=== PATIENT | male | born 1965 | race African-American/Black ===

== ENCOUNTER 2017-03-22 02:28 | Emergency (ER) | payer OTHER ==
[~2017-03-22] VITALS: Ht 180.3 cm; Wt 89.7 kg
[~2017-03-22 02:28] MED LIST: ASPI-1159 PO; BENA20TA3 PO; NIFE60TA64 PO; PANT40TA4 PO
[2017-03-22] MEDS ORDERED: MAGNESIUM/ALUMINUM HYDROXIDE/SIMETHICONE 30ML UDC PO ONE (04:15)
[2017-03-22] MEDS ORDERED: VISCOUS LIDOCAINE 2% 15 ML UDC PO ONE (04:15)
[2017-03-22] MEDS ORDERED: FAMOTIDINE 20MG TABLET PO ONE (04:15)
[2017-03-22] MEDS ORDERED: ONDANSETRON 4MG ODT PO ONE (04:15)
[2017-03-22 05:18] VITALS: BP 129/74
== END 2017-03-22 05:27 | disposition home or self-care (01) ==
LOC: ER 02:28
DX: K29.70 Gastritis, unspecified, without bleeding (principal); K21.9 Gastro-esophageal reflux disease without esophagitis; I10 Essential (primary) hypertension
CPT/HCPCS: 99284; Q0162; Z7610

== ENCOUNTER 2017-04-10 11:49 | Emergency (ER) | payer OTHER ==
[~2017-04-10] VITALS: Ht 177.8 cm; Wt 75.0 kg
[2017-04-10] MEDS ORDERED: SODIUM CHLORIDE 0.9% 1,000 ML IV ONE (12:23)
[2017-04-10] MEDS ORDERED: MAGNESIUM/ALUMINUM HYDROXIDE/SIMETHICONE 30ML UDC PO ONE (12:30)
[2017-04-10] MEDS ORDERED: ONDANSETRON 4MG ODT PO ONE ×2 (12:45→13:45)
[2017-04-10] MEDS ORDERED: FAMOTIDINE 20MG TABLET PO ONE (12:45)
[2017-04-10 13:06] LABS: BASOPHILS % 0.9 % (0.0-2.0); EOSINOPHILS % 0.7 % (0.0-5.0); HEMATOCRIT. 47.8 % (42.0-52.0); HEMOGLOBIN. 16.2 g/dL (14.0-18.0); LYMPHOCYTES % 19.2 % (20.0-50.0); MEAN CORPUSCULAR VOLUME 91.8 fL (80.0-94.0); MEAN PLATELET VOLUME 7.9 fl (7.4-10.4); NEUTROPHILS % 72.2 % (40.0-76.0); PLATELET 240 x1000/uL (130-400); RED BLOOD CELL COUNT 5.21 mill/uL (4.7-6.1); RED CELL DISTRIBUTION WIDTH 14.7 % (11.6-14.6)
[2017-04-10 13:11] LABS: CHLORIDE 106 mEq/L (98-107)
[2017-04-10 13:13] LABS: INR 1.1; PROTHROMBIN TIME 11.7 sec
[2017-04-10 13:16] LABS: CARBON DIOXIDE 22 mEq/L (21-32)
[2017-04-10] MEDS ORDERED: METOCLOPRAMIDE HCL 10MG/2ML VIAL IV ONE (13:45)
[2017-04-10] MEDS ORDERED: TRAMADOL 50MG TABLET PO ONE (13:45)
[2017-04-10 14:20] VITALS: BP 116/77
== END 2017-04-10 15:21 | disposition home or self-care (01) ==
LOC: ER 12:09
DX: K21.9 Gastro-esophageal reflux disease without esophagitis (principal); I10 Essential (primary) hypertension
CPT/HCPCS: 36415; 80053; 83690; 85025; 85610; 96361; 96374; 99284; J2765; J7030; Q0162; Z7610; 81003

== ENCOUNTER 2017-04-27 04:20 | Emergency (ER) | payer OTHER ==
[~2017-04-27] VITALS: Ht 180.3 cm; Wt 83.0 kg
[2017-04-27] MEDS ORDERED: SUCR1ORA PO (04:41)
[2017-04-27] MEDS ORDERED: MAGNESIUM/ALUMINUM HYDROXIDE/SIMETHICONE 30ML UDC PO STA ×2 (05:16→05:21)
[2017-04-27] MEDS ORDERED: VISCOUS LIDOCAINE 2% 15 ML UDC PO STA ×2 (05:16→05:21)
[2017-04-27] MEDS ORDERED: ONDANSETRON 4MG ODT PO STA (05:16)
[2017-04-27] MEDS ORDERED: FAMOTIDINE 20MG/2ML VIAL IV STA (05:21)
[2017-04-27] MEDS ORDERED: ONDANSETRON HCL 4MG/2ML VIAL IV STA (05:21)
[2017-04-27] MEDS ORDERED: KETOROLAC 30MG/ML VIAL IV STA (05:21)
[2017-04-27] MEDS ORDERED: FAMOTIDINE 20MG TABLET PO ONE (05:30)
[2017-04-27 05:37] VITALS: BP 164/110
== END 2017-04-27 06:35 | disposition home or self-care (01) ==
LOC: ER 04:20
DX: K21.9 Gastro-esophageal reflux disease without esophagitis (principal); D49.2 Neoplasm of unspecified behavior of bone, soft tissue, and skin; Z79.82 Long term (current) use of aspirin
CPT/HCPCS: 93005; 96374; 96375; 99284; J1885; J2405; J3490; Z7610

== ENCOUNTER 2017-05-19 05:17 | Emergency (ER) | payer OTHER ==
[~2017-05-19] VITALS: Ht 180.3 cm; Wt 80.0 kg
[~2017-05-19 05:17] MED LIST changes: +SUCR1ORA PO
[2017-05-19] MEDS ORDERED: FAMOTIDINE 20MG/2ML VIAL IV STA (08:22)
[2017-05-19] MEDS ORDERED: DICYCLOMINE 10 MG/5 ML ORAL SYR PO STA (08:22)
[2017-05-19] MEDS ORDERED: ONDANSETRON HCL 4MG/2ML VIAL IV STA (08:22)
[2017-05-19] MEDS ORDERED: VISCOUS LIDOCAINE 2% 15 ML UDC PO STA (08:22)
[2017-05-19] MEDS ORDERED: MAGNESIUM/ALUMINUM HYDROXIDE/SIMETHICONE 30ML UDC PO STA (08:22)
[2017-05-19] MEDS ORDERED: MORPHINE SULFATE 2 MG/ML CPJ (NOT FOR IM USE) IV ONE (09:15)
[2017-05-19 10:40] VITALS: BP 110/82
== END 2017-05-19 10:52 | disposition home or self-care (01) ==
LOC: ER 05:17
DX: K21.9 Gastro-esophageal reflux disease without esophagitis (principal); I10 Essential (primary) hypertension
CPT/HCPCS: 93005; 96374; 96375; 99284; J2270; J2405; J3490; Z7610

== ENCOUNTER 2017-05-21 08:18 | Emergency (ER) | payer OTHER ==
[~2017-05-21] VITALS: Ht 180.3 cm; Wt 85.0 kg
[2017-05-21] MEDS ORDERED: KETOROLAC 60MG/2ML VIAL IM ONE (09:15)
[2017-05-21] MEDS ORDERED: FAMOTIDINE 20MG TABLET PO ONE (09:15)
[2017-05-21 09:17] VITALS: BP 112/97
== END 2017-05-21 10:31 | disposition home or self-care (01) ==
LOC: ER 08:39
DX: J02.9 Acute pharyngitis, unspecified (principal); K21.9 Gastro-esophageal reflux disease without esophagitis; Z98.890 Other specified postprocedural states; I10 Essential (primary) hypertension
CPT/HCPCS: 96372; 99283; J1885; Z7610

== ENCOUNTER 2017-06-14 05:07 | Emergency (ER) | payer OTHER ==
[~2017-06-14] VITALS: Ht 180.3 cm; Wt 84.8 kg
[2017-06-14] MEDS ORDERED: MORPHINE SULFATE 4 MG/ML CPJ (NOT FOR IM USE) IV STA (07:03)
[2017-06-14] MEDS ORDERED: ONDANSETRON HCL 4MG/2ML VIAL IV STA (07:03)
[2017-06-14] MEDS ORDERED: SODIUM CHLORIDE 0.9% 1,000 ML IV ONE (07:03)
[2017-06-14] MEDS ORDERED: FAMOTIDINE 20MG/2ML VIAL IV STA (07:03)
[2017-06-14] MEDS ORDERED: VISCOUS LIDOCAINE 2% 15 ML UDC PO STA (07:05)
[2017-06-14] MEDS ORDERED: MAGNESIUM/ALUMINUM HYDROXIDE/SIMETHICONE 30ML UDC PO STA (07:05)
[2017-06-14] MEDS ORDERED: FOLIC ACID 1 MG, THIAMINE HCL 100 MG, MVI, ADULT NO.1 10 ML in DEXTROSE 5% WATER 1,000 ML IV ONE ×4 (07:15)
[2017-06-14 07:34] LABS: BASOPHILS % 1.2 % (0.0-2.0); EOSINOPHILS % 0.6 % (0.0-5.0); HEMATOCRIT. 47.4 % (42.0-52.0); HEMOGLOBIN. 16.4 g/dL (14.0-18.0); LYMPHOCYTES % 32.7 % (20.0-50.0); MEAN CORPUSCULAR HEMOGLOBIN 30.9 pg (28.0-32.0); MEAN CORPUSCULAR VOLUME 89.3 fL (80.0-94.0); MEAN PLATELET VOLUME 7.5 fl (7.4-10.4); MONOCYTES % 6.9 % (2.0-8.0); NEUTROPHILS % 58.6 % (40.0-76.0); PLATELET 237 x1000/uL (130-400); RED BLOOD CELL COUNT 5.31 mill/uL (4.7-6.1); RED CELL DISTRIBUTION WIDTH 13.8 % (11.6-14.6)
[2017-06-14 07:42] LABS: INR 1.1; PROTHROMBIN TIME 10.9 sec (9.4-11.6)
[2017-06-14 07:49] LABS: CARBON DIOXIDE 20 mEq/L (21-32); CHLORIDE 99 mEq/L (98-107); ETHANOL BLOOD 25 mg/dL
[2017-06-14 10:11] LABS: CLARITY URINE CLEAR (CLEAR); COLOR URINE YELLOW (YELLOW); GLUCOSE URINE NEGATIVE (NEGATIVE); KETONES URINE 2+ (NEGATIVE); LEUKOCYTE ESTERASE URINE NEGATIVE (NEGATIVE); NITRITE URINE NEGATIVE (NEGATIVE); OCCULT BLOOD URINE 2+ (NEGATIVE); PROTEIN URINE 3+ (NEGATIVE); SPECIFIC GRAVITY URINE 1.023 (1.005-1.030); UROBILINOGEN URINE 0.2 E.U./dL (0.2-1.0)
[2017-06-14 10:31] LABS: *AMPHETAMINES SCREEN URINE NEGATIVE (NEGATIVE); *BARBITURATES SCREEN URINE NEGATIVE (NEGATIVE); *BENZODIAZEPINES SCREEN URINE NEGATIVE (NEGATIVE); *COCAINE SCREEN URINE NEGATIVE (NEGATIVE); CANNABINOID URINE SCREEN PRESUMTIVE POSITIVE (NEGATIVE); METHADONE URINE SCREEN NEGATIVE (NEGATIVE); OPIATES URINE SCREEN PRESUMTIVE POSITIVE (NEGATIVE); PHENCYCLIDINE URINE SCREEN NEGATIVE (NEGATIVE)
[2017-06-14 11:53] VITALS: BP 138/98
== END 2017-06-14 13:37 | disposition home or self-care (01) ==
LOC: ER 07:33
DX: R10.13 Epigastric pain (principal); I51.7 Cardiomegaly; I11.9 Hypertensive heart disease without heart failure; K21.9 Gastro-esophageal reflux disease without esophagitis; Z79.82 Long term (current) use of aspirin
CPT/HCPCS: 36415; 71010; 74010; 80053; 80305; 81001; 83690; 85025; 85610; 93005; 96365; 96375; 99285; G0482; J2270; J2405; J3411; J3490; J7030; J7070; Z7610

== ENCOUNTER 2017-06-22 15:40 | Emergency (ER) | payer OTHER ==
[~2017-06-22] VITALS: Ht 180.3 cm; Wt 75.0 kg
[2017-06-22] MEDS ORDERED: MORPHINE SULFATE 4 MG/ML CPJ (NOT FOR IM USE) IV STA (20:36)
[2017-06-22] MEDS ORDERED: MAGNESIUM/ALUMINUM HYDROXIDE/SIMETHICONE 30ML UDC PO STA ×2 (20:36)
[2017-06-22] MEDS ORDERED: ONDANSETRON HCL 4MG/2ML VIAL IV STA ×2 (20:36→23:07)
[2017-06-22] MEDS ORDERED: VISCOUS LIDOCAINE 2% 15 ML UDC PO STA (20:36)
[2017-06-22] MEDS ORDERED: FAMOTIDINE 20MG/2ML VIAL IV STA (20:36)
[2017-06-22] MEDS ORDERED: FOLIC ACID 1 MG, THIAMINE HCL 100 MG, MVI, ADULT NO.1 10 ML in DEXTROSE 5% WATER 1,000 ML IV ONE ×4 (20:45)
[2017-06-22] MEDS ORDERED: SODIUM CHLORIDE 0.9% 1,000 ML IV ONE ×2 (20:48→23:07)
[2017-06-22 20:58] LABS: BASOPHILS % 0.6 % (0.0-2.0); EOSINOPHILS % 0.6 % (0.0-5.0); HEMOGLOBIN. 14.7 g/dL (14.0-18.0); LYMPHOCYTES % 50.5 % (20.0-50.0); MEAN CORPUSCULAR HEMOGLOBIN 30.7 pg (28.0-32.0); MEAN CORPUSCULAR VOLUME 90.1 fL (80.0-94.0); MEAN PLATELET VOLUME 7.7 fl (7.4-10.4); NEUTROPHILS % 37.3 % (40.0-76.0); PLATELET 230 x1000/uL (130-400); RED BLOOD CELL COUNT 4.78 mill/uL (4.7-6.1); RED CELL DISTRIBUTION WIDTH 14.2 % (11.6-14.6)
[2017-06-22 21:07] LABS: INR 1.1; PROTHROMBIN TIME 11.5 sec (9.4-11.6)
[2017-06-22 21:12] LABS: CARBON DIOXIDE 23 mEq/L (21-32); CHLORIDE 107 mEq/L (98-107); ETHANOL BLOOD 12 mg/dL
[2017-06-22] MEDS ORDERED: LORAZEPAM 2MG/ML CPJ IV ONE (23:15)
[2017-06-22] MEDS ORDERED: POTASSIUM CHLORIDE 20MEQ TABLET SR PO ONE (23:15)
[2017-06-22 23:20] LABS: CLARITY URINE CLEAR (CLEAR); COLOR URINE YELLOW (YELLOW); GLUCOSE URINE TRACE (NEGATIVE); KETONES URINE NEGATIVE (NEGATIVE); LEUKOCYTE ESTERASE URINE NEGATIVE (NEGATIVE); NITRITE URINE NEGATIVE (NEGATIVE); OCCULT BLOOD URINE NEGATIVE (NEGATIVE); PH URINE 6.5 (4.5-8.0); PROTEIN URINE NEGATIVE (NEGATIVE); SPECIFIC GRAVITY URINE 1.007 (1.005-1.030); UROBILINOGEN URINE 0.2 E.U./dL (0.2-1.0)
[2017-06-22 23:36] LABS: *AMPHETAMINES SCREEN URINE NEGATIVE (NEGATIVE); *BARBITURATES SCREEN URINE NEGATIVE (NEGATIVE); *BENZODIAZEPINES SCREEN URINE NEGATIVE (NEGATIVE); *COCAINE SCREEN URINE NEGATIVE (NEGATIVE); CANNABINOID URINE SCREEN NEGATIVE (NEGATIVE); METHADONE URINE SCREEN NEGATIVE (NEGATIVE); OPIATES URINE SCREEN PRESUMTIVE POSITIVE (NEGATIVE); PHENCYCLIDINE URINE SCREEN NEGATIVE (NEGATIVE)
[2017-06-23 00:50] VITALS: BP 141/82
== END 2017-06-23 00:50 | disposition home or self-care (01) ==
LOC: ER 15:40
DX: K29.70 Gastritis, unspecified, without bleeding (principal); E86.0 Dehydration; I10 Essential (primary) hypertension; K21.9 Gastro-esophageal reflux disease without esophagitis; Z79.82 Long term (current) use of aspirin
CPT/HCPCS: 36415; 80053; 80305; 81001; 83690; 85025; 85610; 93005; 96365; 96375; 96376; 99285; G0482; J2060; J2270; J2405; J3411; J3490; J7030; J7070; Z7610; 96361

== ENCOUNTER 2017-07-14 09:18 | Emergency (ER) | payer OTHER ==
[~2017-07-14] VITALS: Ht 177.8 cm; Wt 86.0 kg
[2017-07-14] MEDS ORDERED: SODIUM CHLORIDE 0.9% 1,000 ML IV ONE ×2 (09:41→11:00)
[2017-07-14] MEDS ORDERED: ONDANSETRON HCL 4MG/2ML VIAL IV STA (09:41)
[2017-07-14] MEDS ORDERED: THIAMINE HCL 100 MG/1 ML 2ML VIAL IM STA (09:55)
[2017-07-14] MEDS ORDERED: GABAPENTIN 300MG CAPSULE PO STA (09:55)
[2017-07-14] MEDS ORDERED: MAGNESIUM/ALUMINUM HYDROXIDE/SIMETHICONE 30ML UDC PO ONE (10:00)
[2017-07-14] MEDS ORDERED: VISCOUS LIDOCAINE 2% 15 ML UDC PO ONE (10:00)
[2017-07-14] MEDS ORDERED: DIAZEPAM 5 MG/ML 2ML CPJ IV ONE (10:00)
[2017-07-14 10:10] LABS: BASOPHILS % 0.9 % (0.0-2.0); HEMATOCRIT. 43.2 % (42.0-52.0); HEMOGLOBIN. 14.7 g/dL (14.0-18.0); LYMPHOCYTES % 19.3 % (20.0-50.0); MEAN CORPUSCULAR HEMOGLOBIN 30.6 pg (28.0-32.0); MEAN PLATELET VOLUME 7.8 fl (7.4-10.4); MONOCYTES % 8.5 % (2.0-8.0); NEUTROPHILS % 70.3 % (40.0-76.0); PLATELET 228 x1000/uL (130-400); RED BLOOD CELL COUNT 4.81 mill/uL (4.7-6.1); RED CELL DISTRIBUTION WIDTH 14.7 % (11.6-14.6)
[2017-07-14 10:24] LABS: CARBON DIOXIDE 21 mEq/L (21-32); CHLORIDE 94 mEq/L (98-107); ETHANOL BLOOD < 10 mg/dL; TROPONIN I < 0.02 ng/mL (0.00-0.04)
[2017-07-14] MEDS ORDERED: MAGNESIUM 2 G PREMIX 50 ML IV ONE (10:45)
[2017-07-14] MEDS ORDERED: POTASSIUM CHLORIDE INJ 40 MEQ in DEXT 5% WATER 500 ML IV ONE (10:45)
[2017-07-14] MEDS: GABAPENTIN 400MG CAPSULE PO SCH ×2 (14:20→14:47)
[2017-07-14 14:45] VITALS: BP 135/79
== END 2017-07-14 14:49 | disposition home or self-care (01) ==
LOC: ER 10:03
DX: F10.239 Alcohol dependence with withdrawal, unspecified (principal); K29.20 Alcoholic gastritis without bleeding; K21.9 Gastro-esophageal reflux disease without esophagitis; R00.0 Tachycardia, unspecified; E86.0 Dehydration; E87.2 Acidosis; Y90.0 Blood alcohol level of less than 20 mg/100 ml; Z79.82 Long term (current) use of aspirin
CPT/HCPCS: 36415; 80053; 83605; 83690; 84484; 85025; 93005; 96365; 96372; 96375; 99285; G0482; J2405; J3411; J3475; J3480; J7030; Z7610; J7060

== ENCOUNTER 2017-08-13 08:36 | Emergency (ER) | payer OTHER ==
[~2017-08-13] VITALS: Ht 180.3 cm; Wt 89.0 kg
[2017-08-13 08:54] VITALS: BP 130/91
[2017-08-13] MEDS ORDERED: MAGNESIUM/ALUMINUM HYDROXIDE/SIMETHICONE 30ML UDC PO ONE (11:15)
[2017-08-13] MEDS: VISCOUS LIDOCAINE 2% 15 ML UDC MM PRN ×2 (11:21→11:22)
== END 2017-08-13 11:25 | disposition home or self-care (01) ==
LOC: ER 08:54
DX: K29.20 Alcoholic gastritis without bleeding (principal); K21.9 Gastro-esophageal reflux disease without esophagitis; I10 Essential (primary) hypertension; Z79.82 Long term (current) use of aspirin
CPT/HCPCS: 99282

== ENCOUNTER 2017-08-29 18:16 | Emergency (ER) | payer OTHER ==
[~2017-08-29] VITALS: Ht 180.3 cm; Wt 87.0 kg
[2017-08-29 18:21] VITALS: BP 152/100
== END 2017-08-29 19:12 | disposition home or self-care (01) ==
LOC: ER 18:16
DX: R22.0 Localized swelling, mass and lump, head (principal); I10 Essential (primary) hypertension; K21.9 Gastro-esophageal reflux disease without esophagitis; Z79.82 Long term (current) use of aspirin
CPT/HCPCS: 99281

== ENCOUNTER 2017-09-13 05:15 | Emergency (ER) | payer OTHER ==
[~2017-09-13] VITALS: Ht 177.8 cm; Wt 91.0 kg
[2017-09-13] MEDS ORDERED: VISCOUS LIDOCAINE 2% 15 ML UDC MM STA (06:09)
[2017-09-13] MEDS ORDERED: SODIUM CHLORIDE 0.9% 1,000 ML IV ONE ×2 (06:09→07:47)
[2017-09-13] MEDS ORDERED: ONDANSETRON HCL 4MG/2ML VIAL IV STA (06:09)
[2017-09-13] MEDS ORDERED: FAMOTIDINE 20MG/2ML VIAL IV STA (06:09)
[2017-09-13] MEDS ORDERED: MIDAZOLAM HCL 2 MG/2 ML VIAL IV ONE (06:15)
[2017-09-13 07:15] LABS: BASOPHILS % 1.4 % (0.0-2.0); EOSINOPHILS % 2.4 % (0.0-5.0); HEMATOCRIT. 41.4 % (42.0-52.0); HEMOGLOBIN. 14.3 g/dL (14.0-18.0); LYMPHOCYTES % 43.1 % (20.0-50.0); MEAN CORPUSCULAR HEMOGLOBIN 31.8 pg (28.0-32.0); MEAN CORPUSCULAR VOLUME 91.9 fL (80.0-94.0); MEAN PLATELET VOLUME 7.6 fl (7.4-10.4); MONOCYTES % 12.7 % (2.0-8.0); NEUTROPHILS % 40.4 % (40.0-76.0); PLATELET 292 x1000/uL (130-400); RED CELL DISTRIBUTION WIDTH 14.3 % (11.6-14.6)
[2017-09-13 07:19] LABS: CHLORIDE 107 mEq/L (98-107)
[2017-09-13 07:20] LABS: INR 1.1; PARTIAL THROMBOPLASTIN TIME 27.6 sec (23.4-31.0); PROTHROMBIN TIME 11.1 sec (9.4-11.6)
[2017-09-13 07:27] LABS: CARBON DIOXIDE 24 mEq/L (21-32); ETHANOL BLOOD 92 mg/dL
[2017-09-13 09:14] LABS: CLARITY URINE CLEAR (CLEAR); COLOR URINE YELLOW (YELLOW); GLUCOSE URINE NEGATIVE (NEGATIVE); KETONES URINE TRACE (NEGATIVE); LEUKOCYTE ESTERASE URINE NEGATIVE (NEGATIVE); NITRITE URINE NEGATIVE (NEGATIVE); OCCULT BLOOD URINE NEGATIVE (NEGATIVE); PH URINE 6.5 (4.5-8.0); PROTEIN URINE 1+ (NEGATIVE); SPECIFIC GRAVITY URINE 1.017 (1.005-1.030); UROBILINOGEN URINE 0.2 E.U./dL (0.2-1.0)
[2017-09-13 09:43] LABS: *AMPHETAMINES SCREEN URINE NEGATIVE (NEGATIVE); *BARBITURATES SCREEN URINE NEGATIVE (NEGATIVE); *BENZODIAZEPINES SCREEN URINE PRESUMTIVE POSITIVE (NEGATIVE); *COCAINE SCREEN URINE NEGATIVE (NEGATIVE); CANNABINOID URINE SCREEN PRESUMTIVE POSITIVE (NEGATIVE); METHADONE URINE SCREEN NEGATIVE (NEGATIVE); OPIATES URINE SCREEN NEGATIVE (NEGATIVE); PHENCYCLIDINE URINE SCREEN NEGATIVE (NEGATIVE)
[2017-09-13 10:33] VITALS: BP 156/69
== END 2017-09-13 11:33 | disposition home or self-care (01) ==
LOC: ER 05:40
DX: R10.13 Epigastric pain (principal); F10.229 Alcohol dependence with intoxication, unspecified; I10 Essential (primary) hypertension; K21.9 Gastro-esophageal reflux disease without esophagitis; Z79.82 Long term (current) use of aspirin
CPT/HCPCS: 36415; 71010; 74176; 80053; 80305; 81001; 83690; 83735; 85025; 85610; 85730; 93005; 96361; 96374; 96375; 99285; G0482; J2250; J2405; J3490; J7030; Z7610

== ENCOUNTER 2017-09-21 17:00 | Emergency (ER) | payer OTHER ==
[~2017-09-21] VITALS: Ht 177.8 cm; Wt 91.0 kg
[2017-09-21] MEDS ORDERED: SODIUM CHLORIDE 0.9% 1,000 ML IV ONE ×2 (19:16→20:56)
[2017-09-21] MEDS ORDERED: ONDANSETRON HCL 4MG/2ML VIAL IV STA (19:16)
[2017-09-21 20:25] LABS: HEMATOCRIT. 40.2 % (42.0-52.0); MEAN CORPUSCULAR HEMOGLOBIN 31.9 pg (28.0-32.0); MEAN CORPUSCULAR VOLUME 91.6 fL (80.0-94.0); MEAN PLATELET VOLUME 7.6 fl (7.4-10.4); PLATELET 162 x1000/uL (130-400); RED BLOOD CELL COUNT 4.38 mill/uL (4.7-6.1); RED CELL DISTRIBUTION WIDTH 14.5 % (11.6-14.6)
[2017-09-21 20:29] LABS: CHLORIDE 101 mEq/L (98-107)
[2017-09-21 20:39] LABS: CARBON DIOXIDE 21 mEq/L (21-32)
[2017-09-21] MEDS ORDERED: POTASSIUM CHLORIDE 20MEQ TABLET SR PO ONE (21:00)
[2017-09-21] MEDS: VISCOUS LIDOCAINE 2% 15 ML UDC MM PRN ×2 (21:54→22:39)
[2017-09-21 22:30] LABS: PLATELET ESTIMATE NORMAL
[2017-09-21 22:39] VITALS: BP 120/78
== END 2017-09-21 22:42 | disposition home or self-care (01) ==
LOC: ER 17:41
DX: F10.129 Alcohol abuse with intoxication, unspecified (principal); I10 Essential (primary) hypertension; K21.9 Gastro-esophageal reflux disease without esophagitis; Z79.82 Long term (current) use of aspirin; Y90.6 Blood alcohol level of 120-199 mg/100 ml
CPT/HCPCS: 36415; 80053; 83690; 85025; 96361; 96374; 99284; G0482; J2405; J7030; Z7610

== ENCOUNTER 2017-11-21 03:27 | Emergency (ER) | payer OTHER ==
[~2017-11-21] VITALS: Ht 180.3 cm; Wt 86.0 kg
[2017-11-21 03:32] VITALS: BP 142/105
== END 2017-11-21 08:45 | disposition left against medical advice (07) ==
LOC: ER 04:09
DX: M25.569 Pain in unspecified knee (principal); Z53.21 Procedure and treatment not carried out due to patient leaving prior to being seen by health care provider

== ENCOUNTER 2017-11-23 21:23 | Emergency (ER) | payer OTHER ==
[~2017-11-23] VITALS: Ht 180.3 cm; Wt 88.0 kg
[2017-11-23] MEDS ORDERED: KETOROLAC 30MG/ML VIAL IM ONE (23:00)
[2017-11-23] MEDS ORDERED: THIAMINE HCL 100MG TABLET PO ONE (23:00)
[2017-11-23] MEDS ORDERED: MAGNESIUM/ALUMINUM HYDROXIDE/SIMETHICONE 30ML UDC PO ONE (23:00)
[2017-11-24 00:15] VITALS: BP 124/85
== END 2017-11-24 00:29 | disposition home or self-care (01) ==
LOC: ER 21:23
DX: S00.83XA Contusion of other part of head, initial encounter (principal); S53.401A Unspecified sprain of right elbow, initial encounter; S83.91XA Sprain of unspecified site of right knee, initial encounter; I10 Essential (primary) hypertension; F10.20 Alcohol dependence, uncomplicated; Y90.9 Presence of alcohol in blood, level not specified; Z79.82 Long term (current) use of aspirin; Z91.81 History of falling; W01.0XXA Fall on same level from slipping, tripping and stumbling without subsequent striking against object, initial encounter; Y93.89 Activity, other specified; Y92.89 Other specified places as the place of occurrence of the external cause
CPT/HCPCS: 73080; 73560; 82962; 93005; 96372; 99284; J1885

== ENCOUNTER 2017-11-26 02:03 | Emergency (ER) | payer OTHER ==
[~2017-11-26] VITALS: Ht 180.3 cm; Wt 86.0 kg
[2017-11-26 09:00] VITALS: BP 159/96
== END 2017-11-26 09:13 | disposition home or self-care (01) ==
LOC: ER 02:03
DX: M25.561 Pain in right knee (principal); I10 Essential (primary) hypertension; Z79.82 Long term (current) use of aspirin
CPT/HCPCS: 99283

== ENCOUNTER 2017-12-01 04:29 | Emergency (ER) | payer MEDICAID, OTHER ==
[~2017-12-01] VITALS: Ht 180.3 cm; Wt 88.0 kg
[2017-12-01 06:25] VITALS: BP 139/88
== END 2017-12-01 07:01 | disposition home or self-care (01) ==
LOC: ER 04:29
DX: M25.561 Pain in right knee (principal); I10 Essential (primary) hypertension; Z79.82 Long term (current) use of aspirin
CPT/HCPCS: 99281

== ENCOUNTER 2017-12-02 02:57 | Emergency (ER) | payer MEDICAID, OTHER ==
[~2017-12-02] VITALS: Ht 180.3 cm; Wt 89.0 kg
[2017-12-02] MEDS: IBUPROFEN 600MG TABLET PO ONE (09:23)
[2017-12-02 10:03] VITALS: BP 146/91
== END 2017-12-02 10:04 | disposition home or self-care (01) ==
LOC: ER 02:57
DX: M25.461 Effusion, right knee (principal); M25.561 Pain in right knee; Z79.82 Long term (current) use of aspirin; I10 Essential (primary) hypertension; F10.20 Alcohol dependence, uncomplicated; Z87.891 Personal history of nicotine dependence
CPT/HCPCS: 99283

== ENCOUNTER 2017-12-02 22:31 | Emergency (ER) | payer MEDICAID, OTHER ==
[~2017-12-02] VITALS: Ht 180.3 cm; Wt 89.0 kg
[2017-12-02 22:36] VITALS: BP 178/98
== END 2017-12-03 00:30 | disposition left against medical advice (07) ==
LOC: ER 22:31
DX: Z53.21 Procedure and treatment not carried out due to patient leaving prior to being seen by health care provider (principal); I10 Essential (primary) hypertension

== ENCOUNTER 2017-12-03 23:59 | Emergency (ER) | payer MEDICAID ==
[~2017-12-03] VITALS: Ht 180.3 cm; Wt 89.0 kg
[2017-12-04 01:36] VITALS: BP 149/84
== END 2017-12-04 01:43 | disposition home or self-care (01) ==
LOC: ER 23:59
DX: R60.9 Edema, unspecified (principal); I10 Essential (primary) hypertension; F10.20 Alcohol dependence, uncomplicated; F12.10 Cannabis abuse, uncomplicated; Z79.82 Long term (current) use of aspirin
CPT/HCPCS: 99283

== ENCOUNTER 2018-01-27 03:21 | Emergency (ER) | payer MEDICAID, OTHER ==
[~2018-01-27] VITALS: Ht 180.3 cm; Wt 86.7 kg
[2018-01-27] MEDS ORDERED: KETOROLAC 30MG/ML VIAL IM STA (06:46)
[2018-01-27 08:38] VITALS: BP 126/89
== END 2018-01-27 08:46 | disposition home or self-care (01) ==
LOC: ER 03:21
DX: M25.461 Effusion, right knee (principal); M25.521 Pain in right elbow; M17.11 Unilateral primary osteoarthritis, right knee; I10 Essential (primary) hypertension; F10.20 Alcohol dependence, uncomplicated; Y90.9 Presence of alcohol in blood, level not specified; Z79.82 Long term (current) use of aspirin; Z79.899 Other long term (current) drug therapy
CPT/HCPCS: 73562; 96372; 99284; J1885

== ENCOUNTER 2018-03-02 02:08 | Emergency (ER) | payer OTHER ==
[~2018-03-02] VITALS: Ht 180.3 cm; Wt 89.0 kg
[2018-03-02] MEDS ORDERED: KETOROLAC 60MG/2ML VIAL IM ONE (08:45)
[2018-03-02 10:55] VITALS: BP 160/97
== END 2018-03-02 11:15 | disposition home or self-care (01) ==
LOC: ER 02:08
DX: M25.561 Pain in right knee (principal); Z76.0 Encounter for issue of repeat prescription; I10 Essential (primary) hypertension; Z79.82 Long term (current) use of aspirin
CPT/HCPCS: 73562; 96372; 99284; J1885

== ENCOUNTER 2018-03-03 02:36 | Emergency (ER) | payer OTHER ==
[~2018-03-03] VITALS: Ht 180.3 cm; Wt 89.0 kg
[2018-03-03] MEDS ORDERED: KETOROLAC 60MG/2ML VIAL IM ONE (07:30)
[2018-03-03 11:30] VITALS: BP 116/72
== END 2018-03-03 12:46 | disposition left against medical advice (07) ==
LOC: ER 02:36
DX: M25.561 Pain in right knee (principal); I10 Essential (primary) hypertension; Z59.0 Homelessness; Z79.82 Long term (current) use of aspirin
CPT/HCPCS: 96372; 99283; J1885

== ENCOUNTER 2018-06-27 23:07 | Emergency (ER) | payer OTHER ==
[~2018-06-27] VITALS: Ht 180.3 cm; Wt 83.0 kg
[~2018-06-27 23:07] MED LIST changes: +BENA20TA10 PO; -BENA20TA3 PO
[2018-06-28 04:00] VITALS: BP 141/76
== END 2018-06-28 04:41 | disposition home or self-care (01) ==
LOC: ER 23:07
DX: K12.0 Recurrent oral aphthae (principal); Z79.899 Other long term (current) drug therapy
CPT/HCPCS: 99283

== ENCOUNTER 2018-07-15 19:31 | Emergency (ER) | payer OTHER ==
[~2018-07-15] VITALS: Ht 180.3 cm; Wt 88.0 kg
[2018-07-15 19:59] VITALS: BP 105/72
== END 2018-07-15 22:15 | disposition home or self-care (01) ==
LOC: ER 19:31
DX: L03.113 Cellulitis of right upper limb (principal); I10 Essential (primary) hypertension; Z79.82 Long term (current) use of aspirin
CPT/HCPCS: 99283

== ENCOUNTER 2019-04-11 12:06 | Emergency (ER) | payer MEDICAID, OTHER ==
[~2019-04-11] VITALS: Ht 177.8 cm; Wt 86.0 kg
[~2019-04-11 12:06] MED LIST changes: -ASPI-1159 PO; +ASPI-1393 PO
[2019-04-11] MEDS ORDERED: LIDOCAINE 1%/EPI 1:100,000 10 ML VIAL IJ ONE (12:30)
[2019-04-11] MEDS ORDERED: TETANUS, DIPHTHERIA, PERTUSSIS VAC/PF 0.5ML (>7YR OLD) IM ONE (12:30)
[2019-04-11] MEDS ORDERED: LIDOCAINE HCL/EPINEPHRINE 1%-EPI 1:100,000 20 ML VIAL INFIL NR (13:00)
[2019-04-11 14:00] VITALS: BP 139/95
== END 2019-04-11 14:31 | disposition home or self-care (01) ==
LOC: ER 12:06
DX: S01.01XA Laceration without foreign body of scalp, initial encounter (principal); I10 Essential (primary) hypertension; Y00.XXXA Assault by blunt object, initial encounter; Y93.89 Activity, other specified; Y92.488 Other paved roadways as the place of occurrence of the external cause
CPT/HCPCS: 12002; 70450; 90471; 90715; 99284; A4217; J3490; Z7610

== ENCOUNTER 2019-05-17 00:55 | Emergency (ER) | payer MEDICAID, OTHER ==
[~2019-05-17] VITALS: Ht 177.8 cm; Wt 88.0 kg
[2019-05-17 01:59] LABS: HEMATOCRIT. 35.9 % (42.0-52.0); HEMOGLOBIN. 12.5 g/dL (14.0-18.0); MEAN CORPUSCULAR HEMOGLOBIN 34.3 pg (28.0-32.0); MEAN CORPUSCULAR VOLUME 98.8 fL (80.0-94.0); MEAN PLATELET VOLUME 7.8 fl (7.4-10.4); PLATELET 280 x1000/uL (130-400); RED BLOOD CELL COUNT 3.63 mill/uL (4.7-6.1); RED CELL DISTRIBUTION WIDTH 12.4 % (11.6-14.6)
[2019-05-17 02:05] LABS: CHLORIDE 109 mEq/L (98-107)
[2019-05-17 02:08] LABS: ETHANOL BLOOD 140 mg/dL
[2019-05-17 02:26] LABS: PLATELET ESTIMATE NORMAL
[2019-05-17] MEDS ORDERED: ACETAMINOPHEN WITH CODEINE 300/30MG TABLET PO ONE (03:00)
[2019-05-17 03:26] LABS: *AMPHETAMINES SCREEN URINE NEGATIVE (NEGATIVE); *BARBITURATES SCREEN URINE NEGATIVE (NEGATIVE); *BENZODIAZEPINES SCREEN URINE PRESUMTIVE POSITIVE (NEGATIVE); *COCAINE SCREEN URINE NEGATIVE (NEGATIVE)
[2019-05-17 03:27] LABS: CANNABINOID URINE SCREEN PRESUMTIVE POSITIVE (NEGATIVE); METHADONE URINE SCREEN NEGATIVE (NEGATIVE); OPIATES URINE SCREEN NEGATIVE (NEGATIVE); PHENCYCLIDINE URINE SCREEN NEGATIVE (NEGATIVE)
[2019-05-17 12:30] VITALS: BP 138/80
== END 2019-05-17 12:55 | disposition home or self-care (01) ==
LOC: ER 01:04
DX: R53.1 Weakness (principal); F12.90 Cannabis use, unspecified, uncomplicated; F19.10 Other psychoactive substance abuse, uncomplicated; I10 Essential (primary) hypertension; R56.9 Unspecified convulsions
CPT/HCPCS: 36415; 80048; 80185; 80305; 80320; 99283; G0480

== ENCOUNTER 2019-05-24 00:03 | Emergency (ER) | payer MEDICAID ==
[~2019-05-24] VITALS: Ht 165.1 cm; Wt 72.0 kg
[2019-05-24] MEDS ORDERED: SODIUM CHLORIDE 0.9% 500 ML IV ONE (01:21)
[2019-05-24 01:51] LABS: HEMATOCRIT. 38.7 % (42.0-52.0); HEMOGLOBIN. 13.4 g/dL (14.0-18.0); MEAN CORPUSCULAR HEMOGLOBIN 34.2 pg (28.0-32.0); MEAN PLATELET VOLUME 7.5 fl (7.4-10.4); PLATELET 318 x1000/uL (130-400); RED BLOOD CELL COUNT 3.91 mill/uL (4.7-6.1); RED CELL DISTRIBUTION WIDTH 12.9 % (11.6-14.6)
[2019-05-24 01:56] LABS: CHLORIDE 108 mEq/L (98-107)
[2019-05-24 02:08] LABS: ETHANOL BLOOD 375 mg/dL
[2019-05-24 02:13] LABS: CLARITY URINE CLEAR (CLEAR); COLOR URINE YELLOW (YELLOW); KETONES URINE NEGATIVE (NEGATIVE); LEUKOCYTE ESTERASE URINE NEGATIVE (NEGATIVE); NITRITE URINE NEGATIVE (NEGATIVE); OCCULT BLOOD URINE NEGATIVE (NEGATIVE); PROTEIN URINE NEGATIVE (NEGATIVE); SPECIFIC GRAVITY URINE 1.001 (1.005-1.030); UROBILINOGEN URINE 0.2 E.U./dL (0.2-1.0)
[2019-05-24 02:22] LABS: *AMPHETAMINES SCREEN URINE NEGATIVE (NEGATIVE); *BARBITURATES SCREEN URINE NEGATIVE (NEGATIVE); *BENZODIAZEPINES SCREEN URINE PRESUMTIVE POSITIVE (NEGATIVE); *COCAINE SCREEN URINE NEGATIVE (NEGATIVE); CANNABINOID URINE SCREEN NEGATIVE (NEGATIVE); METHADONE URINE SCREEN NEGATIVE (NEGATIVE); OPIATES URINE SCREEN NEGATIVE (NEGATIVE)
[2019-05-24 02:23] LABS: PHENCYCLIDINE URINE SCREEN NEGATIVE (NEGATIVE)
[2019-05-24 03:08] LABS: NUCLEATED RED BLOOD CELLS 1 /100 WBC
[2019-05-24 03:09] LABS: PLATELET ESTIMATE NORMAL
[2019-05-24 09:20] VITALS: BP 127/89
== END 2019-05-24 09:24 | disposition home or self-care (01) ==
LOC: ER 00:03
DX: F10.129 Alcohol abuse with intoxication, unspecified (principal); Y90.8 Blood alcohol level of 240 mg/100 ml or more; I10 Essential (primary) hypertension; Z79.82 Long term (current) use of aspirin; Z79.899 Other long term (current) drug therapy
CPT/HCPCS: 36415; 71045; 80048; 80305; 80307; 80320; 80329; 81003; 85025; 99284; J7030; G0480

== ENCOUNTER 2019-05-24 14:29 | Emergency (ER) | payer MEDICAID ==
[~2019-05-24] VITALS: Ht 170.2 cm; Wt 80.0 kg
[2019-05-24] MEDS ORDERED: SODIUM CHLORIDE 0.9% 1,000 ML IV ONE (14:42)
[2019-05-24] MEDS ORDERED: CHLORDIAZEPOXIDE 25MG CAPSULE PO ONE (16:15)
[2019-05-24 16:33] LABS: BASOPHILS % 2.2 % (0.0-2.0); EOSINOPHILS % 4.4 % (0.0-5.0); HEMATOCRIT. 36.4 % (42.0-52.0); HEMOGLOBIN. 12.6 g/dL (14.0-18.0); LYMPHOCYTES % 44.2 % (20.0-50.0); MEAN CORPUSCULAR VOLUME 98.2 fL (80.0-94.0); MEAN PLATELET VOLUME 7.7 fl (7.4-10.4); NEUTROPHILS % 41.2 % (40.0-76.0); PLATELET 310 x1000/uL (130-400); RED BLOOD CELL COUNT 3.71 mill/uL (4.7-6.1); RED CELL DISTRIBUTION WIDTH 13.1 % (11.6-14.6)
[2019-05-24 16:34] LABS: CLARITY URINE CLEAR (CLEAR); COLOR URINE YELLOW (YELLOW); KETONES URINE NEGATIVE (NEGATIVE); LEUKOCYTE ESTERASE URINE NEGATIVE (NEGATIVE); NITRITE URINE NEGATIVE (NEGATIVE); OCCULT BLOOD URINE NEGATIVE (NEGATIVE); PROTEIN URINE NEGATIVE (NEGATIVE); SPECIFIC GRAVITY URINE 1.001 (1.005-1.030); UROBILINOGEN URINE 0.2 E.U./dL (0.2-1.0)
[2019-05-24 16:38] LABS: CHLORIDE 112 mEq/L (98-107)
[2019-05-24 16:54] LABS: *AMPHETAMINES SCREEN URINE NEGATIVE (NEGATIVE); *BARBITURATES SCREEN URINE NEGATIVE (NEGATIVE); *COCAINE SCREEN URINE NEGATIVE (NEGATIVE); CANNABINOID URINE SCREEN NEGATIVE (NEGATIVE); PHENCYCLIDINE URINE SCREEN NEGATIVE (NEGATIVE)
[2019-05-24 16:55] LABS: *BENZODIAZEPINES SCREEN URINE NEGATIVE (NEGATIVE); METHADONE URINE SCREEN NEGATIVE (NEGATIVE); OPIATES URINE SCREEN NEGATIVE (NEGATIVE)
[2019-05-24 17:01] LABS: ETHANOL BLOOD 365 mg/dL
[2019-05-24 20:35] VITALS: BP 131/76
== END 2019-05-24 22:32 | disposition home or self-care (01) ==
LOC: ER 14:43
DX: T51.0X1A Toxic effect of ethanol, accidental (unintentional), initial encounter (principal); F10.129 Alcohol abuse with intoxication, unspecified; I10 Essential (primary) hypertension; Y90.8 Blood alcohol level of 240 mg/100 ml or more; Y92.89 Other specified places as the place of occurrence of the external cause
CPT/HCPCS: 36415; 80053; 80305; 80307; 80320; 80329; 81003; 85025; 99283; J7030; G0480